=== PATIENT | male | born 1935 | race Caucasian/White ===

== ENCOUNTER 2016-12-28 10:12 | Emergency (ER) | payer OTHER ==
[~2016-12-28] VITALS: Ht 157.5 cm; Wt 101.4 kg
[~2016-12-28 10:12] MED LIST: ALEVE220 MG PO; ASPIR-LOW81 M1 PO; ASPIRIN EC325 MG PO; ASPIRIN81 M1 PO; CELEBREX200 MG PO; Ecotrin PO; FISH OIL 1,2001 EAC4 PO; FLEXERIL10 MG PO; GLUCOPHAGE500 MG PO; GLUCOSAMINE &1 EACH PO; HEALTHY EYES T1 EACH PO; HYDROCODON-ACE1 EAC7 PO; IRON325 M1 PO; LEVO-T100 MCG PO; LEVOXYL75 MCG PO; LO-DOSE ASPIRIN81 M1 PO; NIACIN500 M1 PO; OMEGA 3 1,0001 EACH PO; PRESERVISION PO; PRINIVIL10 MG PO; SENNA PLUS TAB1 EACH PO; SENOKOT S,PE1 TABLET PO; Vicodin,Norco 5/325 PO; ZESTRIL,PRINIVI30 MG PO
[2016-12-28 11:18] LABS: HEMATOCRIT 45.5 % (38.0-50.0); MCH 29.5 PG (29.0-34.0); MCV 89.4 FL (86-99); MEAN PLAT.VOLUME 11.1 uM^3 (9.0-12.4); PLATELET COUNT 179 K/uL (156-360); RBC DIS.WIDTH-CV 14.4 % (11.8-14.6); RBC DIS.WIDTH-SD 46.1 % (39-53); RED BLOOD COUNT 5.09 M/uL (4.00-5.50)
[2016-12-28 12:01] LABS: ANION GAP 12 MEQ/L (2-14); CHLORIDE 100 MEQ/L (99-109); POTASSIUM 3.9 MEQ/L (3.7-5.4); SAMPLE HEMOLYSIS CHECK 0; SAMPLE ICTERIC CHECK 0; SAMPLE LIPEMIA CHECK 0; SODIUM 139 MEQ/L (136-147)
[2016-12-28 12:07] LABS: GFR ESTIMATE (CALCULATED) > 59 mL/min/; GLUCOSE 98 mg/dL (70-99); UREA NITROGEN (BUN) 22 mg/dL (9-23)
[2016-12-28] MEDS ORDERED: AUGMENTIN875 MG PO (13:01)
[2016-12-28 14:18] VITALS: BP 105/66
== END 2016-12-28 14:19 | disposition home or self-care (01) ==
LOC: EME 10:12
PROVIDERS: Emergency Medicine
DX: K11.21 Acute sialoadenitis (principal); L04.0 Acute lymphadenitis of face, head and neck; Z87.891 Personal history of nicotine dependence; I10 Essential (primary) hypertension; E03.9 Hypothyroidism, unspecified; E11.9 Type 2 diabetes mellitus without complications; Z79.84 Long term (current) use of oral hypoglycemic drugs; Z79.82 Long term (current) use of aspirin
CPT/HCPCS: 70487; 80048; 85027; 87040; 99281; 99284; J1100; J2543; J7030